=== PATIENT | female | born 1995 | race Caucasian/White ===

== ENCOUNTER 2016-09-24 16:28 | Emergency (ER) | payer MEDICAID ==
[~2016-09-24] VITALS: Ht 162.6 cm; Wt 62.1 kg
[~2016-09-24 16:28] MED LIST: FLUC150T PO; INSU100C4 SQ; INSU100I13 SQ; METR500T PO; ONDA4TAB7 PO
--- NOTE | 2016-09-24 17:10 | PHYS DOC ---
Past Medical History Past Medical History: Anxiety, Depression, Diabetes-Type I Past Surgical History: Appendectomy Alcohol Use: None Drug Use: None Adult General Chief Complaint Chief Complaint: BLOOD SUGAR PROBLEM HPI HPI Patient is a 21 year old female with history of diabetes type 1 anxiety and depression who presents today complaining of hyperglycemia. Patient states since yesterday her blood sugars have been running high. She states she has no medical insurance and has very limited NovoLog left. Patient states she did use some of her insulin yesterday because she was afraid to ran out of it. Patient denies any other symptoms. Review of Systems Review of Systems Constitutional: Denies fever or chills [] Eyes: Denies change in visual acuity, redness, or eye pain [] HENT: Denies nasal congestion or sore throat [] Respiratory: Denies cough or shortness of breath [] Cardiovascular: No additional information not addressed in HPI [] GI: Denies abdominal pain, nausea, vomiting, bloody stools or diarrhea [] : Denies dysuria or hematuria [] Musculoskeletal: Denies back pain or joint pain [] Integument: Denies rash or skin lesions [] Neurologic: Denies headache, focal weakness or sensory changes [] Endocrine: Hyperglycemia Current Medications Current Medications Current Medications Medications (Trade) Dose Ordered Sig/Severiano Start Time Stop Time Status Last Admin Dose Admin Insulin Human Regular (NovoLIN R VIAL) 10 unit 1X ONCE 09/24/16 19:15 09/24/16 19:16 DC 09/24/16 19:16 10 UNIT Sodium Chloride 1,000 ml @ 1,000 mls/hr 1X ONCE 09/24/16 19:15 09/24/16 20:14 DC 09/24/16 19:17 1,000 MLS/HR Allergies Allergies Allergies Coded Allergies Type Severity Reaction Last Updated Verified No Known Drug Allergies 09/01/15 No Physical Exam Physical Exam Constitutional: Well developed, well nourished, no acute distress, non-toxic appearance. [] HENT: Normocephalic, atraumatic, bilateral external ears normal, oropharynx moist, no oral exudates, nose normal. [] Eyes: PERRLA, EOMI, conjunctiva normal, no discharge. [] Neck: Normal range of motion, no tenderness, supple, no stridor. [] Cardiovascular:Heart rate regular rhythm, no murmur [] Lungs & Thorax: Bilateral breath sounds clear to auscultation [] Abdomen: Bowel sounds normal, soft, no tenderness, no masses, no pulsatile masses. [] Skin: Warm, dry, no erythema, no rash. [] Back: No tenderness, no CVA tenderness. [] Extremities: No tenderness, no cyanosis, no clubbing, ROM intact, no edema. [] Neurologic: Alert and oriented X 3, normal motor function, normal sensory function, no focal deficits noted. [] Psychologic: Affect normal, judgement normal, mood normal. [] Current Patient Data Vital Signs Vital Signs Date Time Temp Pulse Resp B/P (MAP) Pulse Ox O2 Delivery O2 Flow Rate FiO2 09/24/16 19:26 64 18 105/56 (72) 99 Room Air 09/24/16 17:15 98.5 98.5 Lab Values Laboratory Tests Test 09/24/16 17:02 09/24/16 17:25 09/24/16 17:29 09/24/16 18:09 Glucose (Fingerstick) 357 mg/dL (70-99) H 383 mg/dL (70-99) H White Blood Count 10.8 x10^3/uL (4.0-11.0) Red Blood Count 4.41 x10^6/uL (3.50-5.40) Hemoglobin 13.9 g/dL (12.0-15.5) Hematocrit 41.1 % (36.0-47.0) Mean Corpuscular Volume 93 fL (79-100) Mean Corpuscular Hemoglobin 32 pg (25-35) Mean Corpuscular Hemoglobin Concent 34 g/dL (31-37) Red Cell Distribution Width 13.0 % (11.5-14.5) Platelet Count 271 x10^3/uL (140-400) Neutrophils (%) (Auto) 72 % (31-73) Lymphocytes (%) (Auto) 21 % (24-48) L Monocytes (%) (Auto) 5 % (0-9) Eosinophils (%) (Auto) 1 % (0-3) Basophils (%) (Auto) 0 % (0-3) Neutrophils # (Auto) 7.8 x10^3uL (1.8-7.7) H Lymphocytes # (Auto) 2.3 x10^3/uL (1.0-4.8) Monocytes # (Auto) 0.5 x10^3/uL (0.0-1.1) Eosinophils # (Auto) 0.1 x10^3/uL (0.0-0.7) Basophils # (Auto) 0.0 x10^3/uL (0.0-0.2) Sodium Level 133 mmol/L (136-145) L Potassium Level 4.2 mmol/L (3.5-5.1) Chloride Level 100 mmol/L (98-107) Carbon Dioxide Level 29 mmol/L (21-32) Anion Gap 4 (6-14) L Blood Urea Nitrogen 21 mg/dL (7-20) H Creatinine 0.9 mg/dL (0.6-1.0) Estimated GFR (Cockcroft-Gault) 77.6 BUN/Creatinine Ratio 23 (6-20) H Glucose Level 400 mg/dL (70-99) H Calcium Level 8.4 mg/dL (8.5-10.1) L Total Bilirubin 0.2 mg/dL (0.2-1.0) Aspartate Amino Transferase (AST) 13 U/L (15-37) L Alanine Aminotransferase (ALT) 18 U/L (14-59) Alkaline Phosphatase 59 U/L (46-116) Total Protein 6.8 g/dL (6.4-8.2) Albumin 3.4 g/dL (3.4-5.0) Albumin/Globulin Ratio 1.0 (1.0-1.7) Lipase 140 U/L (73-393) POC Urine HCG, Qualitative Hcg negative (Negative) Test 09/24/16 18:15 09/24/16 19:52 Urine Collection Type Unknown Urine Color Yellow Urine Clarity Clear Urine pH 6.0 Urine Specific [place] 1.025 Urine Protein 30 mg/dL (NEG-TRACE) Urine Glucose (UA) >=1000 mg/dL (NEG) Urine Ketones (Stick) Negative mg/dL (NEG) Urine Blood Moderate (NEG) Urine Nitrite Negative (NEG) Urine Bilirubin Negative (NEG) Urine Urobilinogen Dipstick 0.2 mg/dL (0.2 mg/dL) Urine Leukocyte Esterase Negative (NEG) Urine RBC 0 /HPF (0-2) Urine WBC 5-10 /HPF (0-4) Urine Squamous Epithelial Cells Mod /LPF Urine Bacteria Few /HPF (0-FEW) Glucose (Fingerstick) 148 mg/dL (70-99) H Laboratory Tests 09/24/16 17:25 Laboratory Tests 09/24/16 17:25 EKG EKG [] Radiology/Procedures Radiology/Procedures [] Course & Med Decision Making Course & Med Decision Making Pertinent Labs and Imaging studies reviewed. (See chart for details) This is a 21-year-old female patient with history of diabetes type 1 who presents today with hyperglycemia since yesterday. She has no medical insurance hence does not have enough insulin at home the little she has left she states she has not been using it as prescribed because she does not have enough. On arrival to the ED her blood sugar was 357. CBC with no acute findings, CMP with with sodium of 133, glucose of 400, anion gap of 4, creatinine of 0.9, sodium of 133, CO2 of 29. Urine is negative for infection, urine has glucose greater than 1000, 0 ketones, 30 protein. Patient was given 2 L of IV fluid and regular insulin. Blood glucose was 148 prior to discharge. Provided prescription for insulin. Recommended she makes an effort to buy her provided PCP for follow-up. She was discharged in stable condition. insulin. Dragon Disclaimer Dragon Disclaimer This electronic medical record was generated, in whole or in part, using a voice recognition dictation system. Departure Departure Impression: Primary Impression: Hyperglycemia due to type 1 diabetes mellitus Disposition: HOME, SELF-CARE Condition: STABLE Referrals: NO PCP (PCP) follow up with your doctor or a doctor from the list provided next week Patient Instructions: Hyperglycemia, [id number] Additional Instructions: You were seen for high blood sugar due to diabetes. Please try your best and establish care with a primary care doctor. Try your best and get insulin and use it as prescribed. Scripts Insulin Aspart (NOVOLOG) 100 Unit/1 Ml Vial 100 UNIT SQ TIDWMEALS, #1 VIAL slidding scale as you usually use Prov: CHRISSIE MANCINI APRN 09/24/16 Insulin Glargine,Hum.rec.anlog (LANTUS SOLOSTAR) 100 Unit/1 Ml Insuln.pen 30 UNIT SQ QHS, #15 ML 3 Refills Prov: CHRISSIE MANCINI APRN 09/24/16 CHRISSIE MANCINI APRN Sep 24, 2016 17:10
[2016-09-24] MEDS ORDERED: IV NORMAL SALINE 1000ML BAG 1,000 ML IV ONE ×3 (17:15→19:15)
[2016-09-24 17:36] LABS: BASO % 0 % (0-3); EOS % 1 % (0-3); HEMATOCRIT 41.1 % (36.0-47.0); HEMOGLOBIN 13.9 g/dL (12.0-15.5); LYMPH # 2.3 x10^3/uL (1.0-4.8); LYMPH % 21 % (24-48); MEAN CORPUSCULAR HEMOGLOBIN 32 pg (25-35); MEAN CORPUSCULAR HGB CONC 34 g/dL (31-37); MEAN CORPUSCULAR VOLUME 93 fL (79-100); MONO % 5 % (0-9); NEUT % 72 % (31-73); PLATELET COUNT 271 x10^3/uL (140-400); RED BLOOD COUNT 4.41 x10^6/uL (3.50-5.40); WHITE BLOOD COUNT 10.8 x10^3/uL (4.0-11.0)
[2016-09-24 17:55] LABS: CALCIUM 8.4 mg/dL (8.5-10.1); CREATININE 0.9 mg/dL (0.6-1.0); GFR 77.6; POTASSIUM 4.2 mmol/L (3.5-5.1)
[2016-09-24 18:01] LABS: ALBUMIN 3.4 g/dL (3.4-5.0); TOTAL BILIRUBIN 0.2 mg/dL (0.2-1.0); TOTAL PROTEIN 6.8 g/dL (6.4-8.2)
[2016-09-24 18:32] LABS: BILIRUBIN,URINE NEGATIVE (NEG); GLUCOSE,URINE >=1000 mg/dL (NEG); NITRITE,URINE NEGATIVE (NEG); PROTEIN,URINE 30 mg/dL (NEG-TRACE); UROBILINOGEN,URINE 0.2 mg/dL (0.2 mg/dL)
[2016-09-24 18:59] LABS: BACTERIA,URINE FEW /HPF (0-FEW); RBC,URINE 0 /HPF (0-2); SQUAMOUS EPITHELIAL CELL,UR MOD /LPF
[2016-09-24] MEDS ORDERED: INSULIN REGULAR 100 UNIT/ML 10ML VIAL. IV ONE (19:15)
[2016-09-24 19:26] VITALS: BP 105/56
[2016-09-24] MEDS ORDERED: INSU100V31 SQ (20:31)
[2016-09-24] MEDS ORDERED: INSU100I13 SQ (20:31)
== END 2016-09-24 20:39 | disposition home or self-care (01) ==
LOC: ER 16:28
DX: E10.65 Type 1 diabetes mellitus with hyperglycemia (principal); F41.9 Anxiety disorder, unspecified; F32.9 Major depressive disorder, single episode, unspecified; Z90.49 Acquired absence of other specified parts of digestive tract; Z79.4 Long term (current) use of insulin
CPT/HCPCS: 36415; 80053; 81001; 81025; 82962; 83690; 85027; 96361; 96374; 99284; J1815; J7030

== ENCOUNTER 2016-12-23 10:16 | Emergency (ER) | payer SELFPAY ==
[~2016-12-23] VITALS: Ht 165.1 cm; Wt 61.2 kg
[~2016-12-23 10:16] MED LIST changes: +INSU100V31 SQ
--- NOTE | 2016-12-23 11:35 | PHYS DOC ---
Past Medical History Past Medical History: Anxiety, Depression, Diabetes-Type I Past Surgical History: Appendectomy Alcohol Use: None Drug Use: Marijuana Adult General Chief Complaint Chief Complaint: VAGINAL PROBLEM HPI HPI Patient is a 21 year old female presents to emergency department stating that she had the Mirena IUD placed on 12/03/16. Patient states that her SP[facility]TS RECRU[employer] is in [place]. Patient states that this was placed with her menstrual cycle was supposed to started. She states that she spotted for 3 days. She states that within the last week she started having increased vaginal bleeding. She states that is attempting than others. She states that she has having pelvic cramping. Patient also states that she has been unable to fill a string from IUD. Not taking anything for pain and discomfort. She denies any nausea or vomiting. She denies any urinary frequency urgency or pain with urination. Review of Systems Review of Systems Constitutional: Denies fever or chills [] Eyes: Denies change in visual acuity, redness, or eye pain [] HENT: Denies nasal congestion or sore throat [] Respiratory: Denies cough or shortness of breath [] Cardiovascular: No additional information not addressed in HPI [] GI: Denies abdominal pain, nausea, vomiting, bloody stools or diarrhea [] : Denies dysuria or hematuria [] Musculoskeletal: Denies back pain or joint pain [] Integument: Denies rash or skin lesions [] Neurologic: Denies headache, focal weakness or sensory changes [] Endocrine: Denies polyuria or polydipsia [] Complaint of vaginal bleeding, and inability to feel the string from the IUD. Allergies Allergies Allergies Coded Allergies Type Severity Reaction Last Updated Verified No Known Drug Allergies 09/01/15 No Physical Exam Physical Exam Constitutional: Well developed, well nourished, no acute distress, non-toxic appearance. [] HENT: Normocephalic, atraumatic, bilateral external ears normal, oropharynx moist, no oral exudates, nose normal. [] Eyes: PERRLA, EOMI, conjunctiva normal, no discharge. [] Neck: Normal range of motion, no tenderness, supple, no stridor. [] Cardiovascular:Heart rate regular rhythm, no murmur [] Lungs & Thorax: Bilateral breath sounds clear to auscultation [] Abdomen: Bowel sounds normal, soft, no tenderness, no masses, no pulsatile masses. [] Skin: Warm, dry, no erythema, no rash. [] Extremities: No tenderness, no cyanosis, no clubbing, ROM intact, no edema. [] Neurologic: Alert and oriented X 3, normal motor function, normal sensory function, no focal deficits noted. [] Psychologic: Affect normal, judgement normal, mood normal. [] Pelvic exam with Bettye RN at bedside: Speculum Exam with the Visualization of the IUD String Noted. Patient Did Have a Minute Amount of Vaginal Bleeding in the Vault. Samples No Adnexal Tenderness, No CMT Noted. Current Patient Data Vital Signs Vital Signs Date Time Temp Pulse Resp B/P (MAP) Pulse Ox O2 Delivery O2 Flow Rate FiO2 12/23/16 11:49 58 16 105/57 (73) 97 Room Air 12/23/16 10:29 98.5 98.5 Lab Values Microbiology 12/23/16 Wet Prep - Final, Complete EKG EKG [] Radiology/Procedures Radiology/Procedures [][facility] [address] [place], [place] [id number] IMAGING REPORT Signed PATIENT: DARNELL HA ACCOUNT: [id number] : 1995 LOCATION: ER AGE: 21 SEX: F EXAM STATUS: REG ER ORD. PHYSICIAN: CLARA KHAN APRN REASON: confirming placement of IUD PROCEDURE: KUB Examination: Single frontal view of the abdomen History: History of IUD placement Comparison: 05/24/2015 Findings: The bowel gas pattern appears unremarkable. Intrauterine contraceptive device is identified in the pelvis. Impression: 1. Unremarkable bowel gas pattern. 2. Intrauterine contraceptive device is identified in the region of the pelvis. DICTATED and SIGNED BY: NO CLAUDIO MD DATE: 12/23/16 1208 CC: CLARA KHAN APRN; NO PCP; NON,STAFF ~ Course & Med Decision Making Course & Med Decision Making Pertinent Labs and Imaging studies reviewed. (See chart for details) Wet prep was positive for bacterial vaginosis. X-rays were completed with a KUB. Radiologist as pelvic region. However after looking at the KUB x-rays that the uterine devices upside down. During the pelvic exam I was able to identify strings. Spoke with Dr. Rowland and Dr. Armstrong in regards to the site. They both agreed as long as the string the IUD is in place. Patient will be provided with an [employer]TS RE[employer]'s name and number to follow up with. Signs symptoms to return back to emergency department as needed. Patient will be provided with Flagyl at discharge for bacterial vaginosis. Questions and concerns been answered at patient's bedside. Dragon Disclaimer Dragon Disclaimer This electronic medical record was generated, in whole or in part, using a voice recognition dictation system. Departure Departure Impression: Primary Impression: Bacterial vaginosis Disposition: HOME, SELF-CARE Condition: STABLE Referrals: NO PCP (PCP) CAITIE TITUS Jr, MD Patient Instructions: Bacterial Vaginosis, [id number] Additional Instructions: Activity as tolerated Medication as part. Tylenol or ibuprofen for pain and discomfort. Follow-up with SP[employer]TS RE[employer] within the next week. Return back to emergency department for signs and symptoms of become worse Scripts Metronidazole (FLAGYL) 500 Mg Tablet 1 TAB PO BID, #14 TAB Prov: CLARA KHAN APRN 12/23/16 CLARA KHAN APRN Dec 23, 2016 11:35
[2016-12-23 11:49] VITALS: BP 105/57
--- NOTE | 2016-12-23 12:15 | RAD ---
Examination: Single frontal view of the abdomen History: History of IUD placement Comparison: 05/24/2015 Findings: The bowel gas pattern appears unremarkable. Intrauterine contraceptive device is identified in the pelvis. Impression: 1. Unremarkable bowel gas pattern. 2. Intrauterine contraceptive device is identified in the region of the pelvis.
[2016-12-23] MEDS ORDERED: METR500T PO (12:36)
== END 2016-12-23 12:55 | disposition home or self-care (01) ==
LOC: ER 10:16
DX: N76.0 Acute vaginitis (principal); B96.89 Other specified bacterial agents as the cause of diseases classified elsewhere; F41.9 Anxiety disorder, unspecified; F32.9 Major depressive disorder, single episode, unspecified; E10.9 Type 1 diabetes mellitus without complications; Z90.49 Acquired absence of other specified parts of digestive tract
CPT/HCPCS: 74000; 87491; 87591; 99285; Q0111

== ENCOUNTER 2017-05-25 12:44 | Emergency (ER) | payer SELFPAY ==
[2017-05-25 13:06] LABS: URINE HCG POC HCG NEGATIVE (Negative)
[2017-05-25 14:46] LABS: ADD MAN DIFF? NO
[2017-05-25 14:52] LABS: BASO # 0.1 x10^3/uL (0.0-0.2); BASO % 1 % (0-3); EOS # 0.1 x10^3/uL (0.0-0.7); EOS % 2 % (0-3); HEMATOCRIT 42.1 % (36.0-47.0); HEMOGLOBIN 14.3 g/dL (12.0-15.5); LYMPH % 25 % (24-48); MEAN CORPUSCULAR HEMOGLOBIN 31 pg (25-35); MEAN CORPUSCULAR HGB CONC 34 g/dL (31-37); MEAN CORPUSCULAR VOLUME 93 fL (79-100); MONO # 0.5 x10^3/uL (0.0-1.1); MONO % 6 % (0-9); NEUT # 5.4 x10^3uL (1.8-7.7); NEUT % 67 % (31-73); PLATELET COUNT 290 x10^3/uL (140-400); RED BLOOD COUNT 4.55 x10^6/uL (3.50-5.40); RED CELL DISTRIBUTION WIDTH 13.2 % (11.5-14.5); WHITE BLOOD COUNT 8.1 x10^3/uL (4.0-11.0)
[2017-05-25 15:38] LABS: INR 1.1 (0.8-1.1); PARTIAL THROMBOPLASTIN TIME 28 SEC (24-38); PROTHROMBIN TIME PATIENT 13.7 SEC (11.7-14.0)
[2017-05-25 15:43] LABS: ANION GAP 10 (6-14); BLOOD UREA NITROGEN 21 mg/dL (7-20); CALCIUM 9.8 mg/dL (8.5-10.1); CARBON DIOXIDE 26 mmol/L (21-32); CHLORIDE 103 mmol/L (98-107); CREATININE 0.7 mg/dL (0.6-1.0); GFR 103.7; GLUCOSE 93 mg/dL (70-99); POTASSIUM 3.6 mmol/L (3.5-5.1); SODIUM 139 mmol/L (136-145)
[2017-05-25 15:49] LABS: ALBUMIN 4.1 g/dL (3.4-5.0); ALK PHOS 83 U/L (46-116); ALT (SGPT) 16 U/L (14-59); AST (SGOT) 9 U/L (15-37); DIRECT BILIRUBIN 0.1 mg/dL (0.0-0.2); LIPASE 87 U/L (73-393); TOTAL BILIRUBIN 0.5 mg/dL (0.2-1.0); TOTAL PROTEIN 8.3 g/dL (6.4-8.2)
[2017-05-25 16:10] LABS: CKMB MASS 0.7 ng/mL (0.0-3.6); CREATINE KINASE 46 U/L (26-192)
[2017-05-25 16:44] LABS: BILIRUBIN,URINE SMALL (NEG); GLUCOSE,URINE NEGATIVE (NEG); NITRITE,URINE NEGATIVE (NEG); PROTEIN,URINE 100 mg/dL (NEG-TRACE)
[2017-05-25 16:51] LABS: COLOR,URINE DK YELLOW
[2017-05-25 16:52] LABS: CLARITY,URINE HAZY
[2017-05-25 16:54] LABS: BACTERIA,URINE MODERATE /HPF (0-FEW); SQUAMOUS EPITHELIAL CELL,UR MANY /LPF; WBC,URINE 20-40 /HPF (0-4)
[2017-05-25 16:59] LABS: BARBITURATES NEG (NEG); BENZODIAZEPINES POS (NEG); CANNABINOIDS POS (NEG); COCAINE NEG (NEG); METHADONE NEG (NEG); OPIATES NEG (NEG); PHENCYCLIDINE NEG (NEG)
[2017-05-25 17:00] LABS: AMPHETAMINE/METHAMPHETAMINE NEG (NEG); ETHANOL, URINE NEG (NEG)
[2017-05-26 15:30] LABS: CHLAMYDIA PROBE Negative (Negative); GC PROBE Negative (Negative)
== END 2017-05-25 17:17 | disposition home or self-care (01) ==
LOC: ER 12:44
DX: R10.30 Lower abdominal pain, unspecified (principal); F12.10 Cannabis abuse, uncomplicated; F41.9 Anxiety disorder, unspecified; F32.9 Major depressive disorder, single episode, unspecified; E10.9 Type 1 diabetes mellitus without complications; F17.200 Nicotine dependence, unspecified, uncomplicated; Z90.49 Acquired absence of other specified parts of digestive tract
CPT/HCPCS: 36415; 76830; 76856; 80048; 80076; 80307; 81001; 81025; 82553; 83690; 85025; 85610; 85730; 87086; 87491; 87591; 99285-25; Q0111

== ENCOUNTER 2017-06-15 18:55 | Emergency (ER) | payer SELFPAY ==
[2017-06-15 19:57] LABS: POC GLUCOSE 163 mg/dL (70-99)
[2017-06-15 20:05] LABS: URINE HCG POC HCG NEGATIVE (Negative)
== END 2017-06-15 20:21 | disposition home or self-care (01) ==
LOC: ER 18:55
DX: M79.652 Pain in left thigh (principal); N83.209 Unspecified ovarian cyst, unspecified side; E10.65 Type 1 diabetes mellitus with hyperglycemia; F17.200 Nicotine dependence, unspecified, uncomplicated; Z90.49 Acquired absence of other specified parts of digestive tract; Z79.4 Long term (current) use of insulin
CPT/HCPCS: 81025; 82962; 99283

== ENCOUNTER 2018-12-27 12:05 | Emergency (ER) | payer SELFPAY ==
[~2018-12-27] VITALS: Ht 162.6 cm; Wt 65.8 kg
[2018-12-27 12:24] VITALS: BP 128/74
[2018-12-27 12:53] LABS: BILIRUBIN,URINE NEGATIVE (NEG); CLARITY,URINE CLEAR; COLOR,URINE YELLOW; NITRITE,URINE NEGATIVE (NEG); PROTEIN,URINE >=300 mg/dL (NEG-TRACE); UROBILINOGEN,URINE 0.2 mg/dL (0.2 mg/dL)
[2018-12-27 13:22] LABS: SQUAMOUS EPITHELIAL CELL,UR MOD /LPF
[2018-12-27 13:23] LABS: BACTERIA,URINE FEW /HPF (0-FEW); HYALINE CASTS, URINE FEW /HPF; RBC,URINE >40 /HPF (0-2); WBC,URINE 0 /HPF (0-4)
--- NOTE | 2018-12-27 13:37 | PHYS DOC ---
Past Medical History Past Medical History: Diabetes-Type I Past Surgical History: Appendectomy Additional Past Surgical Histo: IUD Alcohol Use: None Drug Use: None Adult General Chief Complaint Chief Complaint: VAGINAL PROBLEM HPI HPI Patient is a 23 year old female with history of diabetes type 1 who presents to the ED today complaining of vaginal discharge for 1 week. Patient denies any concerns for STDs. Denies any urgency, frequency, or dysuria. She states her menstrual cycle began today prior to coming to the ED. She is also complaining of numbness to her toes that occurred on Tuesday and subsided on Tuesday after wearing high heeled shoes. Patient denies any known injury. Denies any numbness or tingling to bilateral lower extremities today. She states her blood sugars have been running in the 160s and she's been using her insulin as prescribed Review of Systems Review of Systems Constitutional: Denies fever or chills [] Eyes: Denies change in visual acuity, redness, or eye pain [] HENT: Denies nasal congestion or sore throat [] Respiratory: Denies cough or shortness of breath [] Cardiovascular: No additional information not addressed in HPI [] GI: Denies abdominal pain, nausea, vomiting, bloody stools or diarrhea [] : Reports vaginal discharge. Denies dysuria or hematuria [] Musculoskeletal: Reports numbness to her toes. Denies back pain or joint pain [] Integument: Denies rash or skin lesions [] Neurologic: Denies headache, focal weakness or sensory changes [] All other systems were reviewed and found to be within normal limits, except as documented in this note. Allergies Allergies Allergies Coded Allergies Type Severity Reaction Last Updated Verified No Known Drug Allergies 09/01/15 No Physical Exam Physical Exam Constitutional: Well developed, well nourished, no acute distress, non-toxic appearance. [] HENT: Normocephalic, atraumatic, bilateral external ears normal, oropharynx moist, no oral exudates, nose normal. [] Eyes: PERRLA, EOMI, conjunctiva normal, no discharge. [] Neck: Normal range of motion, no tenderness, supple, no stridor. [] Cardiovascular:Heart rate regular rhythm, no murmur [] Lungs & Thorax: Bilateral breath sounds clear to auscultation [] Abdomen: Bowel sounds normal, soft, no tenderness, no masses, no pulsatile masses. [] Skin: Warm, dry, no erythema, no rash. [] Back: No tenderness, no CVA tenderness. [] Extremities: No tenderness, no cyanosis, no clubbing, ROM intact, no edema. [] Neurologic: Alert and oriented X 3, normal motor function, normal sensory function, no focal deficits noted. [] Psychologic: Affect normal, judgement normal, mood normal. [] Current Patient Data Vital Signs Vital Signs Date Time Temp Pulse Resp B/P (MAP) Pulse Ox O2 Delivery O2 Flow Rate FiO2 12/27/18 12:24 98.3 70 16 128/74 (92) 96 Room Air 98.3 Lab Values Laboratory Tests Test 12/27/18 12:26 12/27/18 12:40 POC Urine HCG, Qualitative Hcg negative (Negative) Urine Collection Type Unknown Urine Color Yellow Urine Clarity Clear Urine pH 6.0 Urine Specific [place] 1.015 Urine Protein >=300 mg/dL (NEG-TRACE) Urine Glucose (UA) 250 mg/dL (NEG) Urine Ketones (Stick) Negative mg/dL (NEG) Urine Blood Large (NEG) Urine Nitrite Negative (NEG) Urine Bilirubin Negative (NEG) Urine Urobilinogen Dipstick 0.2 mg/dL (0.2 mg/dL) Urine Leukocyte Esterase Negative (NEG) Urine RBC >40 /HPF (0-2) Urine WBC 0 /HPF (0-4) Urine Squamous Epithelial Cells Mod /LPF Urine Bacteria Few /HPF (0-FEW) Urine Hyaline Casts Few /HPF Urine Mucus Mod /LPF Microbiology 12/27/18 Wet Prep - Final, Complete EKG EKG [] Radiology/Procedures Radiology/Procedures [] Course & Med Decision Making Course & Med Decision Making Pertinent Labs and Imaging studies reviewed. (See chart for details) This is a 23-year-old female patient presenting to the ED today with vaginal discharge for 1 week, she started her menstrual cycle today prior to coming to [facility] ED. Negative urine hCG, urine analysis is negative for infection. Wet prep negative for clue cells states she has no concerns for STDs, her vaginal discharge could be normal discharge prior to her menstruation. She is also complaining of numbness to her toes that occurred on Tuesday and Tuesday after wearing high heeled shoe and has subsided. She has history of diabetes type 1 with glucose in the 160s, the numbness could be from neuropathy or just the angle her feet wet in when she had high heels. Discharged to home. PCP for follow-up as an outpatient. Maria Luisa Disclaimer Maria Luisa Disclaimer This electronic medical record was generated, in whole or in part, using a voice recognition dictation system. Departure Departure Impression: Primary Impression: Vaginal discharge Additional Impression: Neuropathy Disposition: HOME, SELF-CARE Condition: STABLE Referrals: NO PCP (PCP) follow up with your doctor next week Patient Instructions: Diabetic Neuropathy Additional Instructions: You were seen in the emergency room for vaginal discharge, and numbness to your toes. Please follow-up with your primary care doctor next week.. Scripts Gabapentin (GABAPENTIN ) 300 Mg Capsule 300 MG PO TID for NEUROGENIC PAIN, #20 CAP Prov: CHRISSIE MANCINI APRN 12/27/18 Problem Qualifiers CHRISSIE MANCINI APRN Dec 27, 2018 13:37
[2018-12-27] MEDS ORDERED: GABA300C18 PO (13:48)
[2018-12-28 18:11] LABS: GC PROBE Negative (Negative)
== END 2018-12-27 13:55 | disposition home or self-care (01) ==
LOC: ER 12:05
DX: N89.8 Other specified noninflammatory disorders of vagina (principal); E10.40 Type 1 diabetes mellitus with diabetic neuropathy, unspecified; Z79.4 Long term (current) use of insulin; Z90.89 Acquired absence of other organs
CPT/HCPCS: 81001; 81025; 87491; 87591; 99284; Q0111

== ENCOUNTER 2019-01-31 10:52 | Emergency (ER) | payer SELFPAY ==
[~2019-01-31] VITALS: Ht 162.6 cm; Wt 65.8 kg
[~2019-01-31 10:52] MED LIST changes: +GABA300C18 PO
[2019-01-31 11:15] VITALS: BP 168/95
[2019-01-31 11:56] LABS: BILIRUBIN,URINE NEGATIVE (NEG); CLARITY,URINE CLEAR; COLOR,URINE YELLOW; NITRITE,URINE NEGATIVE (NEG); PH,URINE 5.5; PROTEIN,URINE >=300 mg/dL (NEG-TRACE); UROBILINOGEN,URINE 0.2 mg/dL (0.2 mg/dL)
[2019-01-31] MEDS ORDERED: AZITHROMYCIN 250 MG TABLET. PO ONE (12:00)
[2019-01-31] MEDS ORDERED: cefTRIAXone IM 250 MG VIAL IM ONE (12:00)
[2019-01-31 12:02] LABS: SQUAMOUS EPITHELIAL CELL,UR MOD /LPF
[2019-01-31 12:03] LABS: BACTERIA,URINE FEW /HPF (0-FEW)
[2019-01-31 12:04] LABS: HYALINE CASTS, URINE FEW /HPF
[2019-01-31] MEDS ORDERED: METR-34 PO (12:17)
--- NOTE | 2019-01-31 12:17 | PHYS DOC ---
Past Medical History Past Medical History: Diabetes-Type I Past Surgical History: Appendectomy Additional Past Surgical Histo: IUD Alcohol Use: None Drug Use: None Adult General Chief Complaint Chief Complaint: VAGINAL PROBLEM HPI HPI Patient is a 23 year old female who presents to the emergency department with complaints of irregular vaginal discharge for the last week with a foul odor. Patient reports that she has recently been involved with a new sexual partner. She denies any vaginal itching, bleeding or pain. Patient denies any fever, dysuria, hematuria, low back pain, increased urinary frequency, nausea, vomiting, or abdominal pain. Patient states her last menstrual period was on January 20, 2019, she denies the use of any contraceptives at this time. Patient currently denies any pain. She reports concern of a STI. All other ROS is neg unless otherwise noted in HPI. Review of Systems Review of Systems See Above Current Medications Current Medications Current Medications Medications (Trade) Dose Ordered Sig/Severiano Start Time Stop Time Status Last Admin Dose Admin Azithromycin (Zithromax) 1,000 mg 1X ONCE 01/31/19 12:01/31/19 12:01 DC Ceftriaxone Sodium (Rocephin Im) 250 mg 1X ONCE 01/31/19 12:00 01/31/19 12:01 DC Allergies Allergies Allergies Coded Allergies Type Severity Reaction Last Updated Verified No Known Drug Allergies 09/01/15 No Physical Exam Physical Exam See Above Constitutional: Well developed, well nourished, no acute distress, non-toxic appearance. [] HENT: Normocephalic, atraumatic, bilateral external ears normal, nose normal. [] Eyes: PERRLA, EOMI, conjunctiva normal, no discharge. [] Neck: Normal range of motion, no tenderness, supple, no stridor. [] Cardiovascular:Heart rate regular rhythm Lungs & Thorax: Respirations even and unlabored, no retractions, no respiratory distress Pelvic Exam: Medication Specialist present Candy ERT Abdomen: Nontender, soft External Genitalia: Normal Skin Speculum: Normal vaginal mucosa, yellow creamy cervical discharge, cervix non friable Bimanual: No adnexal masses or tenderness, No CMT Skin: Warm, dry, no erythema, no rash. [] Extremities: No cyanosis, ROM intact, no edema. [] Neurologic: Alert and oriented X 3, no focal deficits noted. [] Psychologic: Affect normal, judgement normal, mood normal. [] Current Patient Data Vital Signs Vital Signs Date Time Temp Pulse Resp B/P (MAP) Pulse Ox O2 Delivery O2 Flow Rate FiO2 01/31/19 11:15 98.3 106 16 168/95 (119) 94 Room Air 98.3 Lab Values Laboratory Tests Test 01/31/19 11:10 01/31/19 11:14 Urine Collection Type Unknown Urine Color Yellow Urine Clarity Clear Urine pH 5.5 Urine Specific [place] >=1.030 Urine Protein >=300 mg/dL (NEG-TRACE) Urine Glucose (UA) >=1000 mg/dL (NEG) Urine Ketones (Stick) Trace mg/dL (NEG) Urine Blood Large (NEG) Urine Nitrite Negative (NEG) Urine Bilirubin Negative (NEG) Urine Urobilinogen Dipstick 0.2 mg/dL (0.2 mg/dL) Urine Leukocyte Esterase Negative (NEG) Urine RBC 3-5 /HPF (0-2) Urine WBC 1-4 /HPF (0-4) Urine Squamous Epithelial Cells Mod /LPF Urine Bacteria Few /HPF (0-FEW) Urine Hyaline Casts Few /HPF Urine Mucus Marked /LPF POC Urine HCG, Qualitative Hcg negative (Negative) Microbiology 01/31/19 Wet Prep - Final, Complete EKG EKG [] Radiology/Procedures Radiology/Procedures [] Course & Med Decision Making Course & Med Decision Making Pertinent Labs and Imaging studies reviewed. (See chart for details) 3-year-old female presented to the emergency room for evaluation of her regular vaginal discharge and odor. Wet mount revealed clue cells concerning for bacterial vaginosis. UA was unremarkable. Patient was treated prophylactically with 250 mg of IM Rocephin, and 1 g of PO Zithromax. Patient was instructed to avoid having intercourse until the results of gonorrhea and chlamydia testing are available, patient was notified that these results would not be available for 48 hours. If one or both of these tests is positive, patient needs to refrain from intercourse for approximately 1 week following the treatment of any current partners. Prescription was written for Flagyl 500 mg by mouth twice a day 7 days. Patient verbalized an understanding of home care, medications, follow-up, and return to ED instructions and was in agreement with the plan of care. [] Dragon Disclaimer Dragon Disclaimer This electronic medical record was generated, in whole or in part, using a voice recognition dictation system. Departure Departure Impression: Primary Impression: Bacterial vaginosis Additional Impression: Contact with and (suspected) exposure to infections with a predominantly sexual mode of transmission Disposition: 01 HOME, SELF-CARE Condition: STABLE Referrals: NO PCP (PCP) Patient Instructions: Bacterial Vaginosis, [id number], Sexually Transmitted Disease, [id number] Additional Instructions: Fill the prescription and use as directed. Recommend that you go to your local health department for comprehensive sexually transmitted disease testing. You have been treated for a suspected gonorrhea and chlamydia. Avoid having intercourse until the results of gonorrhea and chlamydia testing are available, these results will not be available for 48 hours. If one or both of these tests is positive, you need to refrain from intercourse for approximately 1 week following the treatment of any current partners. Follow-up with your primary care doctor if symptoms persist, return to ER symptoms worsen. Scripts Metronidazole (METRONIDAZOLE) 500 Mg Tablet 1 TAB PO BID for 7 Days, #14 TAB 0 Refills Prov: KRANTHI AKINS APRN 01/31/19 Problem Qualifiers KRANTHI AKINS APRN Jan 31, 2019 12:17
[2019-02-03 14:11] LABS: GC PROBE Negative (Negative)
== END 2019-01-31 13:00 | disposition home or self-care (01) ==
LOC: ER 10:52
DX: N76.0 Acute vaginitis (principal); Z20.2 Contact with and (suspected) exposure to infections with a predominantly sexual mode of transmission; E10.9 Type 1 diabetes mellitus without complications; Z90.49 Acquired absence of other specified parts of digestive tract; Z98.890 Other specified postprocedural states
CPT/HCPCS: 81001; 81025; 87491; 87591; 96372; 99284; J0696; Q0111; Q0144

== ENCOUNTER 2019-03-03 07:35 | Emergency (ER) | payer SELFPAY ==
[~2019-03-03] VITALS: Ht 162.6 cm; Wt 63.5 kg
[~2019-03-03 07:35] MED LIST changes: +METR-34 PO
[2019-03-03 07:46] VITALS: BP 171/83
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
== END 2019-03-03 08:28 | disposition home or self-care (01) ==
LOC: ER 07:35
DX: S31.41XA Laceration without foreign body of vagina and vulva, initial encounter (principal); S30.23XA Contusion of vagina and vulva, initial encounter; N89.8 Other specified noninflammatory disorders of vagina; E10.8 Type 1 diabetes mellitus with unspecified complications; F17.210 Nicotine dependence, cigarettes, uncomplicated; Z90.89 Acquired absence of other organs; X58.XXXA Exposure to other specified factors, initial encounter; Y93.89 Activity, other specified; Y92.89 Other specified places as the place of occurrence of the external cause; Y99.8 Other external cause status
CPT/HCPCS: 99283